=== PATIENT | female | born 1975 | race Caucasian/White ===

== ENCOUNTER 2019-01-20 08:52 | Day surgery (SDC) | payer OTHER ==
[2019-01-19 10:59] VITALS: BMI 34.3
[~2019-01-20] VITALS: Ht 156.2 cm; Wt 77.3 kg
[2019-01-20] VITALS (10 sets, daily range): BP systolic 98–123; BP diastolic 64–79; PULSE 68–90; RESP 10–18; Ht 156.2 cm; Wt 77.3 kg
[~2019-01-20 08:52] MED LIST: ACET325T33 PO; IBUP-1561 PO
[2019-01-20] MEDS ORDERED: LIDOCAINE 1%/EPI (1:100,000) (MDV) 20 ML ONE (12:50)
[2019-01-20] MEDS ORDERED: METOCLOPRAMIDE 10 MG INJ ONE (12:57)
[2019-01-20] MEDS ORDERED: PROPOFOL 20 ML ONE (12:57)
[2019-01-20] MEDS ORDERED: ONDANSETRON 4 MG INJ ONE (12:57)
[2019-01-20] MEDS ORDERED: ROCURONIUM 50 MG INJ ONE (12:57)
[2019-01-20] MEDS ORDERED: SUCCINYLCHOLINE CHLORIDE 100 MG/5 ML SYG IV ONE (12:57)
[2019-01-20] MEDS ORDERED: CEFAZOLIN 1 GM INJ ONE (12:57)
[2019-01-20] MEDS ORDERED: SEVOFLURANE 15 MIN ONE (12:57)
[2019-01-20] MEDS ORDERED: LIDOCAINE 2% (SDV) 5 ML INJ ONE (12:57)
[2019-01-20] MEDS ORDERED: BUPIVACAINE 0.25%/EPI (SDV) 10 ML INJ ONE (13:22)
[2019-01-20] MEDS ORDERED: ONDANSETRON 4 MG INJ IV PRN (13:30)
[2019-01-20] MEDS ORDERED: MEPERIDINE 25 MG INJ IV PRN (13:30)
[2019-01-20] MEDS ORDERED: FENTAnyl 50 MCG/ML VIAL IV PRN ×3 (13:30)
[2019-01-20] MEDS ORDERED: OXYCODONE/ACETAMINOPHEN (5/325) TAB PO PRN ×2 (13:30)
[2019-01-20] MEDS ORDERED: METOCLOPRAMIDE 10 MG INJ IV PRN (13:30)
[2019-01-20] MEDS ORDERED: DIPHENHYDRAMINE 50 MG INJ IV PRN (13:30)
[2019-01-20] MEDS ORDERED: MIDAZOLAM 1 MG/ML 2 ML INJ IV PRN (13:30)
== END 2019-01-20 15:37 | disposition home or self-care (01) ==
LOC: SDS 08:52
PROVIDERS: ATTEND Otolaryngology Otolaryngology/Facial Plastic Surgery
DX: K14.8 Other diseases of tongue (principal)
CPT/HCPCS: 41110; 71045; 80048; 85025; 85610; 85730; 88305; 88312; J0690; J2405; J2765; Z7512; Z7610

== ENCOUNTER 2019-02-02 10:00 | Emergency (ER) | payer OTHER ==
[~2019-02-02] VITALS: Ht 162.6 cm; Wt 78.7 kg
[2019-02-02 10:04] VITALS: BP 143/83; PULSE 60; RESP 17; Ht 162.6 cm; Wt 78.7 kg
[2019-02-02] MEDS ORDERED: ACETAMINOPHEN 500 MG TAB PO STA (11:05)
== END 2019-02-02 11:37 | disposition home or self-care (01) ==
LOC: FTE 10:00
DX: Z48.01 Encounter for change or removal of surgical wound dressing (principal)
CPT/HCPCS: 99282